=== PATIENT | female | born 1955 | race Caucasian/White ===

== ENCOUNTER 2016-09-14 12:19 | Day surgery (SDC) | payer MEDICARE ==
[~2016-09-14 12:19] MED LIST: BENADRYL25 MG; CARAFATE1 G2 PO; KLONOPIN2 M1 PO; LORATADINE10 MG; MULTI VITAMIN1 EAC2 PO; PROTONIX40 M2 PO; SEROQUEL100 M2 PO; WELLBUTRIN XL300 M3 PO; XANAX1 M1 PO
== END 2016-09-14 15:05 ==
LOC: SHSA 12:19 → ENDOS 13:20
PROC: 0DJ08ZZ Inspection of Upper Intestinal Tract, Via Natural or Artificial Opening Endoscopic (ICD-10-PCS; principal; 2016-09-14)
PROC: 0DJD8ZZ Inspection of Lower Intestinal Tract, Via Natural or Artificial Opening Endoscopic (ICD-10-PCS; 2016-09-14)
DX: Z12.11 Encounter for screening for malignant neoplasm of colon (principal); K64.8 Other hemorrhoids; K21.9 Gastro-esophageal reflux disease without esophagitis; E66.01 Morbid (severe) obesity due to excess calories; Z68.41 Body mass index [BMI] 40.0-44.9, adult; F41.9 Anxiety disorder, unspecified; F43.10 Post-traumatic stress disorder, unspecified; F32.9 Major depressive disorder, single episode, unspecified; Z98.890 Other specified postprocedural states; Z90.49 Acquired absence of other specified parts of digestive tract; Z98.51 Tubal ligation status; Z88.8 Allergy status to other drugs, medicaments and biological substances; Z88.6 Allergy status to analgesic agent; Z87.891 Personal history of nicotine dependence
CPT/HCPCS: 43235; G0121